=== PATIENT | female | born 1950 | race Caucasian/White ===

== ENCOUNTER → 2017-10-21 | Outpatient (CLI) | payer MEDICARE, BC ==
[~2017-10-21] MED LIST: ATR10 PO; LISI-347 PO; RAL60 PO; VENL-248 PO
--- NOTE | 2017-10-21 15:25 | RADIOLOGY IMAGING REPORT ---
FACILITY: [facility] PATIENT NAME: YOKO BELL : [id number] MR: [id number]: [id number] EXAM DATE: [id number] ORDERING PHYSICIAN: SHELIA ARZOLA TECHNOLOGIST: Diana Macedo PROCEDURE:BILATERAL DIGITAL SCREENING MAMMOGRAM WITH CAD ASSISTED INTERPRETATION & 3D TOMOSYNTHESIS COMPARISON:Prior mammograms 09/02/2016. INDICATIONS:Screening FINDINGS: Breast tissue demonstrates scattered fibroglandular tissue elements. There is no suspicious mass, calcification, or architectural distortion. DIAGNOSTIC CATEGORY 1--NEGATIVE. RECOMMENDATIONS: ROUTINE MAMMOGRAM AND CLINICAL EVALUATION. IMPRESSION: BIRADS 1: Negative. No mammographic evidence for malignancy. Dictated by: Chuck Alan M.D. on 10/21/2017 at 12:50 Transcribed by: JAX on 10/21/2017 at 13:38 Approved by: Chuck Alan M.D. on 10/21/2017 at 15:22 [facility]
== END ==
LOC: MAMO 01:13
PROVIDERS: ATTEND Obstetrics & Gynecology
DX: Z12.31 Encounter for screening mammogram for malignant neoplasm of breast (principal)
CPT/HCPCS: 77063; 77067